=== PATIENT | female | born 1950 | race Caucasian/White ===

== ENCOUNTER → 2017-06-15 10:53 | Outpatient (CLI) | payer MEDICARE, OTHER, SELFPAY ==
--- NOTE | 2017-06-15 10:56 | US_ITS ---
STUDY: ULTRASOUND TRANSVAGINAL CLINICAL: Female, 67 years old. Endometrial thickening TECHNIQUE: Transvaginal COMPARISON: December 21, 2016. FINDINGS: Normal uterine size measuring 5.6 x 3.5 x 2.6 cm in maximal craniocaudal dimension. There are no myometrial masses. Slightly prominent endometrial thickness measuring 7.5 mm with slight heterogeneity. There are cystic areas in the lower uterine segment of the endometrium. No fluid in the endometrial cavity. Normal uterine cervix. Nonvisualization of the ovaries. There is no free fluid in the pelvis. US/Transvaginal Non- IMPRESSION: Stable slightly prominent heterogeneous endometrium similar to previous study. Electronically Signed: Alexandre Thomas DO at 20:29 EDT Tel [phone], Service support ,
== END ==
DX: R93.8 Abnormal findings on diagnostic imaging of other specified body structures (principal)
CPT/HCPCS: 76830

== ENCOUNTER → 2017-08-04 10:17 | Outpatient (CLI) | payer MEDICARE, OTHER, SELFPAY ==
--- NOTE | 2017-08-04 10:28 | BI_ITS ---
MAMMOGRAPHY - BILATERAL SCREENING REASON FOR EXAM: Female, 67 years old. Routine annual screening examination. PERTINENT HISTORY: Non-contributory. TECHNIQUE: Digital bilateral breast lamar (3D mammographic acquisition) in the CC and MLO projections. 2-D mediolateral oblique (MLO) and craniocaudad (CC) views of both breasts were obtained. CAD: Full Field Digital Mammography with Computer Added Detection was performed. COMPARISON: Comparison is made with prior study dated September 17, 2009. FINDINGS: Breast Composition: The breasts are heterogeneously dense, which may obscure small masses. There are no dominant masses or suspicious calcifications. No other significant abnormalities are identified. There has been no significant change since the prior study. BI/SCREENING MAMM (CAD), BILAT IMPRESSION: Stable bilateral screening mammogram. Yearly follow-up mammogram recommended. (A) ASSESSMENT CATEGORY: BIRADS Category 1: Negative. A letter regarding these results will be sent to the patient by the facility within 30 days. Approximately 10% of breast cancers are not detected by mammography. A normal mammogram should not delay biopsy of a clinically suspicious abnormality. [id number] Electronically Signed: Tra Sharpe MD at 15:38 EDT Tel [phone], Service support ,
== END ==
PROVIDERS: Visit Provider Obstetrics & Gynecology
DX: Z12.31 Encounter for screening mammogram for malignant neoplasm of breast (principal)
CPT/HCPCS: 77063; 77067

== ENCOUNTER → 2017-09-15 15:48 | Outpatient (CLI) | payer MEDICARE, OTHER, SELFPAY | PROVIDERS: Visit Provider Otolaryngology Otolaryngology/Facial Plastic Surgery | DX: J32.9 Chronic sinusitis, unspecified (principal) | CPT/HCPCS: 87070; 87205 ==

== ENCOUNTER → 2018-12-26 | Outpatient (CLI) | payer MEDICARE, OTHER, SELFPAY ==
--- NOTE | 2018-12-26 08:26 | BD_ITS ---
STUDY: DUAL ENERGY X-RAY ABSORPTIOMETRY / DXA REASON FOR EXAM: Female, 68 years old. The patient is postmenopausal. Loss of height. TECHNIQUE: Bone Mineral Density (BMD) measurements of lumbar spine and bilateral hips were obtained. COMPARISON: Comparison is made with prior examination December 14, 2016. FINDINGS: Lumbar Spine (L1-L4): g/cm2 (1.057) / T-score (-0.9) / Z-score (0.7) Findings are suggestive of normal bone density with a low fracture risk. Left Femur Total: g/cm2 (0.943) / T-score (-0.5) / Z-score (0.9) Left Femoral Neck: g/cm2 (0.949) / T-score (-0.6) / Z-score (1.0) Right Femur Total: g/cm2 (0.912) / T-score (-0.8) / Z-score (0.6) Right Femoral Neck: g/cm2 (0.994) / T-score (-0.3) / Z-score (1.3) The T-Scores on the most recent prior examination were: Lumbar Spine (L1-L4): There has been worsening of bone density since the previous examination. Left Femur Total: which represents a worsening of 1.4%. Right Femur Total: which represents a worsening of 3.4%. BD/Dexa Bone Density Study IMPRESSION: The patient is considered normal as outlined below according to World [place] Organization (WHO) criteria with a low fracture risk. There has been worsening of bone density since the previous examination. Reference Information: The T-score is the number of standard deviations above or below the standard which is normal for young adults at their peak bone mineral density. The World Health Organization (WHO) interprets the T-scores as follows: Above -1 Normal bone density Between -1 and -2.5 Osteopenia Equal to / or below -2.5 Osteoporosis As a practical clinical guideline, osteopenia may be graded as follows: Mild -1 through -1.5 Moderate -1.6 through -2.0 Severe -2.1 through -2.4 The Z-score is the number of standard deviations above or below age-matched controls. A Z-score of less than -1.5 would be considered abnormal. References: 1. NIH Osteoporosis and Related Bone Diseases http://www.osteo.org 2. International Society for Clinical Densitometry http://www.iscd.org 3. National Osteoporosis Foundation http://www.nof.org Electronically Signed: Tra Sharpe, at 9:42 EST , Service support ,
== END | disposition home or self-care (01) ==
DX: N95.9 Unspecified menopausal and perimenopausal disorder (principal)
CPT/HCPCS: 77080

== ENCOUNTER 2021-05-12 14:46 | Outpatient (CLI) | payer MEDICARE, OTHER, SELFPAY ==
[2021-05-12 15:28] LABS: Erythrocyte Sedimentation Rate 10 mm/hr (0-30)
[2021-05-12 15:30] LABS: Absolute Lymphocyte Count 1.63 X10^3/uL (0.83-4.51); Absolute Neutrophil Count 3.2 X10^3/uL (2.0-7.7); Basophil# 0.09 X10^3/uL; Basophil% 1.5 % (0-1); Eosinophil# 0.44 X10^3/uL; Eosinophils% 7.2 % (0-5); Hematocrit 39.9 % (37-47); Hemoglobin 13.9 g/dL (12.0-15.0); Lymphocyte # 1.63 X10^3/ul (0.83-4.51); Lymphocyte % 26.6 % (19-41); Mean Corp Hgb Conc 34.8 g/dL (32-36); Mean Corpuscular Hgb 30.2 pg (27.0-32.0); Mean Corpuscular Volume 86.7 fL (81-99); Mean Platelet Vol. 9.3 fl (6.2-12.0); Monocyte# 0.75 X10^3/uL; Monocyte% 12.2 % (0-10); NRBC Flagged by Analyzer 0 % (0-5); Neutrophil # 3.21 X10^3/uL (2.7-7.7); Neutrophil % 52.3 % (47-70); Platelet Count 375 K/mm3 (150-450); RBC Distribution Width SD 38.5 fl (35.1-43.9); White Blood Count 6.1 K/mm3 (4.4-11.0)
[2021-05-12 16:16] LABS: AST(SGOT) 33 U/L (15-37); Alanine Aminotransfer ALT/SGPT 38 U/L (13-56); Albumin, Serum 3.8 g/dL (3.2-5.0); Alkaline Phosphatase 120 U/L (45-117); Anion Gap 6 (5-15); BUN 21 mg/dL (7-18); BUN/Creat Ratio 24.1 RATIO (10-20); CRP < 2.90 mg/L (0.0-3.0); Chloride 103 mmol/L (98-107); Creatinine, Serum 0.87 mg/dL (0.55-1.02); EST Glomerular Filtration Rate 68 mL/min (>60); Est Glom Filt Rate - Afr Amer 82 mL/min (>60); Globulin 3.9 g/dL (2.2-4.2); Glucose 89 mg/dL (74-106); Potassium 3.9 mmol/L (3.5-5.1); Protein, Total 7.7 g/dL (6.4-8.2); Sodium Level 139 mmol/L (136-145)
[2021-05-14 15:48] LABS: Mycoplasma Pneum AB IgG 325 U/mL (0-99); Mycoplasma pneum. AB IgM < 770 U/mL (0-769)
== END 2021-05-12 23:59 | disposition home or self-care (01) ==
DX: R53.83 Other fatigue (principal); N98.1 Hyperstimulation of ovaries
CPT/HCPCS: 36415; 80053; 85025; 85652; 86140; 86738

== ENCOUNTER → 2022-05-12 | Outpatient (CLI) | payer MEDICARE, OTHER, SELFPAY ==
--- NOTE | 2022-05-12 12:52 | BI_ITS ---
MAMMOGRAPHY - BILATERAL SCREENING REASON FOR EXAM: Female, 72 years old. Routine annual screening examination. PERTINENT HISTORY: Non-contributory. TECHNIQUE: Digital bilateral breast nelida (3D mammographic acquisition) in the CC and MLO projections. 2-D mediolateral oblique (MLO) and craniocaudad (CC) views of both breasts were obtained. CAD: Full Field Digital Mammography with Computer Added Detection was performed. COMPARISON: Comparison is made with prior study dated August 04, 2017 and September 18, 1999. FINDINGS: Breast Composition: The breasts are heterogeneously dense, which may obscure small masses. There is a new slightly irregular 1.1 cm x 0.7 cm slightly irregular nodule in the retroareolar region of the left breast. Correlation with ultrasound is recommended. No other significant abnormalities are identified. BI/SCRN MAMM (CAD)W/NELIDA BILAT IMPRESSION: 1.1 cm x 0.7 cm slightly irregular retroareolar nodule in the left breast. Correlation with ultrasound is recommended. ASSESSMENT CATEGORY: BIRADS Category 0: Incomplete. Need additional imaging evaluation. A letter regarding these results will be sent to the patient by the facility within 30 days. Approximately 10% of breast cancers are not detected by mammography. A normal mammogram should not delay biopsy of a clinically suspicious abnormality. [id number] Electronically Signed: Tra Sharpe MD at 14:14 EDT ,
--- NOTE | 2022-05-12 13:01 | BD_ITS ---
STUDY: DUAL ENERGY X-RAY ABSORPTIOMETRY / DXA REASON FOR EXAM: Female, 72 years old. [id number] TECHNIQUE: Bone Mineral Density (BMD) measurements of lumbar spine and bilateral hips were obtained. COMPARISON: Comparison is made with prior study December 26, 2018. FINDINGS: Lumbar Spine (L1-L4): g/cm2 (0.883) / T-score (-0.9) / Z-score (1.2) Findings are suggestive of normal bone density with a low fracture risk. Left Femur Total: g/cm2 (0.860) / T-score (-0.7) / Z-score (1.0) Left Femoral Neck: g/cm2 (0.760) / T-score (-0.8) / Z-score (1.1) Right Femur Total: g/cm2 (0.870) / T-score (-0.7) / Z-score (1.0) Right Femoral Neck: g/cm2 (0.805) / T-score (-0.4) / Z-score (1.5) The T-Scores on the most recent prior examination were: Lumbar Spine (L1-L4): There has been worsening of bone density since the previous examination. Left Femur Total: which represents a worsening of 2.1%. Right Femur Total: which represents an improvement of 2.5%. BD/Dexa Bone Density Study IMPRESSION: The patient is considered normal as outlined below according to World [place] Organization (WHO) criteria with a low fracture risk. There has been worsening of bone density since the previous examination. Reference Information: The T-score is the number of standard deviations above or below the standard which is normal for young adults at their peak bone mineral density. The World Health Organization (WHO) interprets the T-scores as follows: Above -1 Normal bone density Between -1 and -2.5 Osteopenia Equal to / or below -2.5 Osteoporosis As a practical clinical guideline, osteopenia may be graded as follows: Mild -1 through -1.5 Moderate -1.6 through -2.0 Severe -2.1 through -2.4 The Z-score is the number of standard deviations above or below age-matched controls. A Z-score of less than -1.5 would be considered abnormal. References: 1. NIH Osteoporosis and Related Bone Diseases www osteo.org 2. International Society for Clinical Densitometry www iscd.org 3. National Osteoporosis Foundation www nof.org Electronically Signed: Tra Sharpe MD at 12:34 EDT ,
== END | disposition home or self-care (01) ==
LOC: OPBD 12:49 → WOBLAB 14:13
PROVIDERS: Visit Provider Nurse Practitioner Women's Health
DX: Z12.31 Encounter for screening mammogram for malignant neoplasm of breast (principal); R30.0 Dysuria; Z78.0 Asymptomatic menopausal state
CPT/HCPCS: 77063; 77067; 77080; 87086; 87088

== ENCOUNTER → 2022-05-18 | Outpatient (CLI) | payer MEDICARE, OTHER, SELFPAY ==
--- NOTE | 2022-05-18 08:56 | US_ITS ---
STUDY: ULTRASOUND BREAST - LEFT REASON FOR EXAM: Female, 72 years old. Abnormal screening mammogram. TECHNIQUE: Axial and longitudinal images of the LEFT breast were performed with a high resolution ultrasound transducer. # OF IMAGES: 31 COMPARISON: Comparison is made with prior mammogram dated May 12, 2022. FINDINGS: LEFT Breast: The mammographic abnormality corresponds to a 1.2 cm x 0.7 cm x 0.6 cm irregular hypoechoic nodule at the 6:00 position of the in the retroareolar region. Biopsy recommended. US/Breast Limited Unilateral IMPRESSION: 1.2 cm x 0.7 cm x 0.6 cm hypoechoic irregular nodule corresponding to the mammographic findings. A biopsy is recommended. ASSESSMENT CATEGORY: BIRADS Category 4: Suspicious - Biopsy Should Be Considered. A letter regarding these results will be sent to the patient by the facility within 30 days. Electronically Signed: Tra Sharpe MD at 15:54 EDT ,
== END | disposition home or self-care (01) ==
LOC: OPUS 08:54
DX: R92.8 Other abnormal and inconclusive findings on diagnostic imaging of breast (principal)
CPT/HCPCS: 76642

== ENCOUNTER → 2022-05-26 | Outpatient (CLI) | payer MEDICARE, OTHER, SELFPAY ==
--- NOTE | 2022-05-26 | BRBX_PTH ---
PATIENT: ROSA IGLESIAS LOC: [facility] U#:[id number] AGE/SX: 72/F ROOM: RE05/26/[address]: Dr. Genesis Barnett MD : 1950 BED: DIS: 05/26/2022 SPEC #: [id number] RECD: 05/26/22 15:58 STATUS: MEETA REYo #: [id number] BLANCA: 05/26/22 00:[address]: Genesis Barnett DEPT: SURGICAL PATHOLOGY RECD BY: Adam Herrera ENTERED: 05/27/22 08:58 SP TYPE: BREAST BX OTHR DR: Dr. Moriah Baker MD Tissues: Left breast, NOS Procedures: Surgery Specimen Level IV HEADER OPERATION: Biopsy of left breast nodule PRE-OP DIAGNOSIS: Left breast nodule TISSUE SUBMITTED: Left breast nodule tissue ? retroareolar 6 o?clock FIXATION TIME: 76 hours MICROSCOPIC DIAGNOSIS Left breast nodule tissue, retroareolar 6 o?clock, core biopsy: Intraductal papilloma. Negative for atypia or malignancy. See comment. OPAL:yajaira 05/30/2022 COMMENT Correlation with clinical, radiologic findings and appropriate follow up are necessary. MICROSCOPIC DESCRIPTION Slides are reviewed. GROSS DESCRIPTION Received in fixative is one container labeled with the patient's name and designated left breast. The specimen consists of two elongated fragments of garvey-yellow fibroadipose tissue that in aggregate measure 1.5 x 0.2 x 0.1 cm. The entire specimen is submitted in one cassette. / OPAL:yajaira 05/27/2022 TC:1 CPT: 81654
== END | disposition home or self-care (01) ==
LOC: LABSPEC 16:27
PROVIDERS: Visit Provider Surgery
DX: D24.2 Benign neoplasm of left breast (principal)
CPT/HCPCS: 88305